=== PATIENT | female | born 1955 | race Caucasian/White ===

== ENCOUNTER → 2024-09-07 13:25 | Outpatient (CLI) | payer MEDICARE, OTHER, SELFPAY | PROVIDERS: PCP Internal Medicine; Referring Provider Internal Medicine; Visit Provider Surgery | DX: T81.89XA Other complications of procedures, not elsewhere classified, initial encounter (principal); S31.104A Unspecified open wound of abdominal wall, left lower quadrant without penetration into peritoneal cavity, initial encounter; S31.105A Unspecified open wound of abdominal wall, periumbilic region without penetration into peritoneal cavity, initial encounter; G24.8 Other dystonia; M76.62 Achilles tendinitis, left leg; R80.9 Proteinuria, unspecified; Z86.718 Personal history of other venous thrombosis and embolism; G20.C Parkinsonism, unspecified | CPT/HCPCS: 11042; 87070; 87075; 87077; 87147; 87186; 87205; 99203; 99213 ==

== ENCOUNTER → 2024-09-14 13:12 | Outpatient (CLI) | payer MEDICARE, OTHER, SELFPAY | LOC: WC 13:16 | PROVIDERS: PCP Internal Medicine; Referring Provider Internal Medicine; Visit Provider Surgery | DX: T81.89XA Other complications of procedures, not elsewhere classified, initial encounter (principal); S31.104A Unspecified open wound of abdominal wall, left lower quadrant without penetration into peritoneal cavity, initial encounter; S31.109A Unspecified open wound of abdominal wall, unspecified quadrant without penetration into peritoneal cavity, initial encounter | CPT/HCPCS: 11042 ==

== ENCOUNTER → 2024-09-21 13:50 | Outpatient (CLI) | payer MEDICARE, OTHER, SELFPAY | PROVIDERS: PCP Internal Medicine; Referring Provider Internal Medicine; Visit Provider Surgery | DX: T81.89XA Other complications of procedures, not elsewhere classified, initial encounter (principal); S31.104A Unspecified open wound of abdominal wall, left lower quadrant without penetration into peritoneal cavity, initial encounter; S31.109A Unspecified open wound of abdominal wall, unspecified quadrant without penetration into peritoneal cavity, initial encounter | CPT/HCPCS: 11042 ==

== ENCOUNTER → 2024-10-05 08:51 | Outpatient (CLI) | payer MEDICARE, OTHER, SELFPAY | LOC: WC 08:58 | PROVIDERS: PCP Internal Medicine; Referring Provider Internal Medicine; Visit Provider Surgery | DX: T81.89XA Other complications of procedures, not elsewhere classified, initial encounter (principal); L98.8 Other specified disorders of the skin and subcutaneous tissue; S31.104A Unspecified open wound of abdominal wall, left lower quadrant without penetration into peritoneal cavity, initial encounter; S31.109A Unspecified open wound of abdominal wall, unspecified quadrant without penetration into peritoneal cavity, initial encounter | CPT/HCPCS: 11042; 99213 ==

== ENCOUNTER → 2024-10-06 09:21 | Outpatient (CLI) | payer MEDICARE, OTHER, SELFPAY ==
--- NOTE | 2024-10-06 09:23 | DI.CT.S_ITS ---
PROCEDURE: CT ABDOMEN PELVIS W CON INDICATIONS: non healing abd wounds TECHNIQUE: After the administration of intravenous contrast, axial sections acquired from the lung bases to the pubic symphysis. Coronal and sagittal reformats were performed. For radiation dose reduction, the following was used: automated exposure control, adjustment of mA and/or kV according to patient size. COMPARISON: None. FINDINGS: Image quality: Diagnostic. Lower Chest: Bilateral lung bases are clear. Heart size is normal, no pericardial effusion. Moderate size hiatal hernia. ABDOMEN: Liver: No solid mass. Gallbladder: Gallbladder is surgically absent. Biliary ducts: No biliary dilation. Pancreas: No ductal dilation. Spleen: Size is within normal limits. Adrenal Glands: No adrenal nodules. Kidneys and Ureters: No hydronephrosis. No solid mass. No complex renal cystic lesion which requires follow up. Stomach and Bowel: There is no bowel obstruction. No abnormal bowel wall thickening or mesenteric fat stranding. Mild fecal stasis in the colon is seen. No abscess collection. Peritoneum: No abnormal intraperitoneal fluid. No free air. Ventral Wall: Postsurgical changes are noted in midline and left anterior abdominal wall with significant subcutaneous fat stranding. Enlarged bilateral rectus abdominus muscle is also seen. Ill-defined hypodensity involving midline anterior abdominal wall deep soft tissue anterior to the rectus muscles is seen. No discrete drainable peripherally enhancing abscess collection. Abdominal Nodes: No retroperitoneal or mesenteric adenopathy by size criteria. Vessels: Aorta and inferior vena cava are normal in size. PELVIS: Pelvic Organs: Unremarkable. Bladder: No bladder wall thickening, accounting for underdistention. Pelvic Nodes: No enlarged lymph nodes. Miscellaneous: No inguinal hernias are seen. Bones: No aggressive osseous abnormality. Spondylitic changes throughout lower thoracic and lumbar spine is seen. Grade 1 anterolisthesis of L4 on L5 is noted. No acute vertebral body compression fracture. IMPRESSION: 1. Postsurgical changes in anterior abdominal wall with ill-defined hypodense area in deep midline abdominal wall soft tissue superficial to the rectus muscles likely represent postsurgical seroma. Clinical correlation and follow-up is recommended. No discrete drainable peripherally enhancing abscess collection. 2. No bowel obstruction or abnormal bowel wall thickening. No peritoneal free fluid or free air. No abscess collection. 3. Moderate size hiatal hernia. 4. Spondylitic changes in lumbar spine as above. Dictated by: Tim Ivey M.D. on 10/07/2024 at 23:18 Approved by: Tim Ivey M.D. on 10/07/2024 at 23:30
== END ==
PROVIDERS: PCP Internal Medicine; Referring Provider Internal Medicine; Visit Provider Surgery
DX: S31.109D Unspecified open wound of abdominal wall, unspecified quadrant without penetration into peritoneal cavity, subsequent encounter (principal); K44.9 Diaphragmatic hernia without obstruction or gangrene; M47.814 Spondylosis without myelopathy or radiculopathy, thoracic region; M47.816 Spondylosis without myelopathy or radiculopathy, lumbar region; M43.16 Spondylolisthesis, lumbar region; Z90.49 Acquired absence of other specified parts of digestive tract
CPT/HCPCS: 74177; Q9967

== ENCOUNTER → 2024-11-02 13:59 | Outpatient (CLI) | payer MEDICARE, OTHER, SELFPAY | PROVIDERS: PCP Internal Medicine; Referring Provider Internal Medicine; Visit Provider Nurse Practitioner Family | DX: T81.31XA Disruption of external operation (surgical) wound, not elsewhere classified, initial encounter (principal); S31.109A Unspecified open wound of abdominal wall, unspecified quadrant without penetration into peritoneal cavity, initial encounter | CPT/HCPCS: 11042; 99213 ==

== ENCOUNTER → 2024-11-09 12:14 | Outpatient (CLI) | payer MEDICARE, OTHER, SELFPAY | PROVIDERS: PCP Internal Medicine; Referring Provider Internal Medicine; Visit Provider Surgery | DX: T81.31XA Disruption of external operation (surgical) wound, not elsewhere classified, initial encounter (principal); S31.109A Unspecified open wound of abdominal wall, unspecified quadrant without penetration into peritoneal cavity, initial encounter; L98.8 Other specified disorders of the skin and subcutaneous tissue | CPT/HCPCS: 11042; 99213 ==

== ENCOUNTER → 2024-11-16 08:47 | Outpatient (CLI) | payer MEDICARE, OTHER, SELFPAY | LOC: WC 08:48 | PROVIDERS: PCP Internal Medicine; Referring Provider Internal Medicine; Visit Provider Physician Assistant | DX: T81.31XA Disruption of external operation (surgical) wound, not elsewhere classified, initial encounter (principal); S91.109A Unspecified open wound of unspecified toe(s) without damage to nail, initial encounter; R21 Rash and other nonspecific skin eruption; L98.8 Other specified disorders of the skin and subcutaneous tissue | CPT/HCPCS: 99213 ==

== ENCOUNTER → 2024-11-23 14:17 | Outpatient (CLI) | payer MEDICARE, OTHER, SELFPAY | LOC: WC 14:18 | PROVIDERS: PCP Internal Medicine; Referring Provider Internal Medicine; Visit Provider Surgery | DX: T81.31XD Disruption of external operation (surgical) wound, not elsewhere classified, subsequent encounter (principal); S31.109D Unspecified open wound of abdominal wall, unspecified quadrant without penetration into peritoneal cavity, subsequent encounter; R21 Rash and other nonspecific skin eruption | CPT/HCPCS: 99213 ==

== ENCOUNTER → 2024-12-14 10:57 | Outpatient (CLI) | payer MEDICARE, OTHER, SELFPAY | PROVIDERS: PCP Internal Medicine; Referring Provider Internal Medicine; Visit Provider Surgery | DX: Z09 Encounter for follow-up examination after completed treatment for conditions other than malignant neoplasm (principal); Z87.828 Personal history of other (healed) physical injury and trauma | CPT/HCPCS: 99212; 99213 ==

== ENCOUNTER → 2025-01-18 10:11 | Outpatient (CLI) | payer MEDICARE, OTHER, SELFPAY | LOC: WC 10:21 | PROVIDERS: PCP Internal Medicine; Referring Provider Internal Medicine; Visit Provider Surgery | DX: L89.893 Pressure ulcer of other site, stage 3 (principal) | CPT/HCPCS: 11042; 87070; 87075; 87205; 99213 ==

== ENCOUNTER → 2025-01-25 10:47 | Outpatient (CLI) | payer MEDICARE, OTHER, SELFPAY | LOC: WC 10:48 | PROVIDERS: PCP Internal Medicine; Referring Provider Internal Medicine; Visit Provider Surgery | DX: L89.893 Pressure ulcer of other site, stage 3 (principal); R21 Rash and other nonspecific skin eruption | CPT/HCPCS: 11042 ==

== ENCOUNTER → 2025-02-01 14:54 | Outpatient (CLI) | payer MEDICARE, OTHER, SELFPAY | LOC: WC 15:02 | PROVIDERS: PCP Internal Medicine; Referring Provider Internal Medicine; Visit Provider Surgery | DX: L89.893 Pressure ulcer of other site, stage 3 (principal); L92.8 Other granulomatous disorders of the skin and subcutaneous tissue | CPT/HCPCS: 11042 ==

== ENCOUNTER → 2025-02-15 13:33 | Outpatient (CLI) | payer MEDICARE, OTHER, SELFPAY | LOC: WC 13:35 | PROVIDERS: PCP Internal Medicine; Referring Provider Internal Medicine; Visit Provider Surgery | DX: L89.893 Pressure ulcer of other site, stage 3 (principal) | CPT/HCPCS: 11042; 99213 ==

== ENCOUNTER → 2025-02-22 12:21 | Outpatient (CLI) | payer MEDICARE, OTHER, SELFPAY | LOC: WC 12:22 | PROVIDERS: PCP Internal Medicine; Referring Provider Internal Medicine; Visit Provider Surgery | DX: L89.893 Pressure ulcer of other site, stage 3 (principal) | CPT/HCPCS: 11042 ==

== ENCOUNTER → 2025-03-01 13:10 | Outpatient (CLI) | payer MEDICARE, OTHER, SELFPAY | LOC: WC 13:11 | PROVIDERS: PCP Internal Medicine; Referring Provider Internal Medicine; Visit Provider Surgery | DX: L89.893 Pressure ulcer of other site, stage 3 (principal); L92.9 Granulomatous disorder of the skin and subcutaneous tissue, unspecified | CPT/HCPCS: 17250; 99213 ==

== ENCOUNTER → 2025-03-13 10:03 | Outpatient (CLI) | payer MEDICARE, OTHER, SELFPAY | LOC: WC 10:04 | PROVIDERS: PCP Internal Medicine; Referring Provider Internal Medicine; Visit Provider Surgery | DX: T81.89XA Other complications of procedures, not elsewhere classified, initial encounter (principal); S31.109A Unspecified open wound of abdominal wall, unspecified quadrant without penetration into peritoneal cavity, initial encounter; L98.8 Other specified disorders of the skin and subcutaneous tissue; L23.1 Allergic contact dermatitis due to adhesives; L89.893 Pressure ulcer of other site, stage 3 | CPT/HCPCS: 11042; 99213 ==